=== PATIENT | female | born 1950 ===

== ENCOUNTER 2017-08-03 19:34 | Emergency (ER) | payer MEDICARE, OTHER ==
[~2017-08-03] VITALS: Ht 160 cm; Wt 91.8 kg
[2017-08-03] MEDS ORDERED: ASPIRIN 81 MG TABLET CHEW PO ONE (20:00)
[2017-08-03] MEDS ORDERED: SODIUM CHLORIDE FLUSH 10ML SYR IVF ONE (20:00)
[2017-08-03] MEDS ORDERED: ASPIRIN 81 MG TABLET CHEW ONE (20:10)
[2017-08-03 20:12] LABS: HEMATOCRIT 41.7 % (34.6-47.8); HEMOGLOBIN 13.6 g/dL (11.7-16.4); WHITE BLOOD COUNT 14.4 x10^3/uL (3.4-10)
[2017-08-03 20:24] LABS: ASPARTATE AMINO TRANSFERASE 24 U/L (15-37); BLOOD UREA NITROGEN 23 mg/dL (7-18)
[2017-08-03 20:29] LABS: IS PT STATUS REG ER OR PRE ER? YES
[2017-08-03] MEDS ORDERED: LORazepam 1MG TABLET ONE (20:36)
[2017-08-03] MEDS ORDERED: LORazepam 1MG TABLET PO ONE (21:00)
[2017-08-03 21:46] VITALS: BP 169/72
== END 2017-08-03 21:47 | disposition left against medical advice (07) ==
LOC: ED 21:41
DX: R07.89 Other chest pain (principal); N28.9 Disorder of kidney and ureter, unspecified; F41.1 Generalized anxiety disorder; R06.4 Hyperventilation; I10 Essential (primary) hypertension
CPT/HCPCS: 36415; 71010; 80053; 83690; 84484; 85025; 86677; 93005; 99285